=== PATIENT | male | born 1955 | race Caucasian/White ===

== ENCOUNTER → 2018-04-20 | Day surgery (SDC) | payer BC ==
[~2018-04-20] VITALS: Ht 182.8 cm; Wt 98.0 kg
[~2018-04-20] MED LIST: ASPIRIN ADULT L81 M2 PO; LISINOPRIL20 MG PO; NEXIUM40 MG PO; VITAMIN D22000 UNIT PO
[2018-04-20 08:05] VITALS: BP 140/96
[2018-04-20 08:57] VITALS: BP 131/87
[2018-04-20 09:12] VITALS: BP 157/94
[2018-04-20 09:29] VITALS: BP 158/100
== END | disposition home or self-care (01) ==
LOC: SDC 04-16 08:45
DX: K29.50 Unspecified chronic gastritis without bleeding (principal); K21.9 Gastro-esophageal reflux disease without esophagitis; I10 Essential (primary) hypertension; Z79.899 Other long term (current) drug therapy; Z98.890 Other specified postprocedural states; Z79.82 Long term (current) use of aspirin; Z87.442 Personal history of urinary calculi; Z88.8 Allergy status to other drugs, medicaments and biological substances